=== PATIENT | male | born 1990 | race Caucasian/White ===

== ENCOUNTER 2018-09-26 12:23 | Emergency (ER) | payer OTHER | END 2018-09-26 15:07 | disposition home or self-care (01) | LOC: FTE 12:23 | DX: J45.909 Unspecified asthma, uncomplicated (principal); H61.23 Impacted cerumen, bilateral; F17.210 Nicotine dependence, cigarettes, uncomplicated | CPT/HCPCS: 99283; Z7502 ==

== ENCOUNTER 2018-10-13 14:31 | Emergency (ER) | payer OTHER ==
[2018-10-13] MEDS ORDERED: DEXAMETHASONE (1 MG/ML PO SYG) PO (15:39)
[2018-10-13] MEDS: ALBUTEROL 0.083% (NEB) 2.5 MG/3 ML AMP NEB (15:51)
[2018-10-13] MEDS: IPRATROPIUM (NEB) 0.5 MG/2.5 ML AMP NEB (15:52)
[2018-10-13] MEDS: DEXAMETHASONE 4 MG TAB PO (16:02)
== END 2018-10-13 16:52 | disposition home or self-care (01) ==
LOC: FTE 14:31
DX: J45.901 Unspecified asthma with (acute) exacerbation (principal); Z87.891 Personal history of nicotine dependence
CPT/HCPCS: 94664; 99284-25

== ENCOUNTER 2019-01-01 11:38 | Emergency (ER) | payer OTHER ==
[2019-01-01] MEDS: predniSONE 20 MG TAB PO (12:29)
[2019-01-01] MEDS: ALBUTEROL 0.083% (NEB) 2.5 MG/3 ML AMP NEB (12:29)
[2019-01-01] MEDS: IPRATROPIUM (NEB) 0.5 MG/2.5 ML AMP NEB (12:29)
== END 2019-01-01 13:17 | disposition home or self-care (01) ==
LOC: FTE 11:38
DX: J45.901 Unspecified asthma with (acute) exacerbation (principal); Z76.0 Encounter for issue of repeat prescription
CPT/HCPCS: 94664; 99283-25

== ENCOUNTER 2019-01-24 13:01 | Emergency (ER) | payer OTHER | END 2019-01-24 15:40 | disposition home or self-care (01) | LOC: FTE 13:01 | DX: J45.901 Unspecified asthma with (acute) exacerbation (principal); Z87.891 Personal history of nicotine dependence | CPT/HCPCS: 99283; Z7502 ==